=== PATIENT | female | born 1995 | race African-American/Black ===

== ENCOUNTER 2019-09-23 10:23 | Emergency (ER) | payer OTHER ==
[~2019-09-23] VITALS: Ht 157.5 cm; Wt 53.5 kg
[2019-09-23 10:25] VITALS: BP 122/65
== END 2019-09-23 11:25 | disposition home or self-care (01) ==
LOC: ER 10:23
DX: F41.9 Anxiety disorder, unspecified (principal); J40 Bronchitis, not specified as acute or chronic
CPT/HCPCS: 71045